=== PATIENT | female | born 1990 | race Caucasian/White ===

== ENCOUNTER 2020-03-12 20:05 | Emergency (ER) | payer BC, SELFPAY ==
--- NOTE | ~2020-03-12 | CT_ITS ---
EXAMINATION: CT abdomen pelvis w con DATE: 03/12/2020 21:45 INDICATION: Lower abdominal pain and nausea TECHNIQUE: Computed tomography (CT) of the abdomen and pelvis was performed with 100 mL Omnipaque-350 intravenous contrast. Automated exposure control and iterative reconstruction technique were employe d. The dose-length product was 1566.86 mGy-cm. COMPARISON: None FINDINGS: Large centrally calcified angioma at the anteroinferior lingula. Lung bases are otherwise clear. Hear t size is normal. No pericardial or pleural effusion. Liver, gallbladder, pancreas and bilateral adre nal glands are normal. Splenic calcification consistent with old granulomatous disease. 5 mm nonobstr ucting stone at the upper pole of the left kidney. 1.5 cm cyst at the interpolar region of the right kidney. Normal appendix. No abnormal bowel wall thickening or obstruction. Bladder, anteverted uterus and bilateral adnexa are unremarkable. No free intraperitoneal gas or fluid. No pathologically enlar ged abdominal or pelvic lymphadenopathy. Mild thoracic and lumbar spondylosis. IMPRESSION: 1. No acute intra-abdominal/pelvic process. 2. 5 mm nonobstructing left renal stone. Reviewed, dictated and finalized at location A.
[2020-03-12 20:15] VITALS: BP 186/94; PULSE 114; RESP 20; TEMP 36.6; O2SAT 96
[2020-03-12 20:40] LABS: Add Urine Microscopic? YES; Appearance Urine Clear (Clear); Bilirubin Urine Negative (Negative); Blood Urine Negative (Negative); Color Urine Yellow (Yellow); Glucose Urine UA Negative (Negative); Ketones Urine Trace (Negative); Leukocyte Esterase Ur Negative (Negative); Nitrate Urine Negative (Negative); Protein Urine Negative (Negative); Specific Grav Ur 1.025 (1.010-1.020); pH Urine 6.5 (5.0-8.0)
--- NOTE | 2020-03-12 20:40 | ED.ABDPAIN ---
HPI - Abdominal Pain General Chief Complaint: Abdominal Pain Stated Complaint: abd pain Source: patient Mode of arrival: ambulatory Limitations: no limitations History of Present Illness HPI narrative: this 29-year-old female comes to the ED with complaints of constant lower abdominal pain sharp, 5/10, for the last 7 days poor 2 or 3 times per she has additional sharp pain which she rates 7-8/10 which lasts less than 2 minutes. Traveling over a bump makes the pain worse. Nothing she does relieves the discomfort. She was nauseated earlier today and several times over the past week. The symptoms have not worsened, she came in because I could not handle it . , has been trying to get . Menses are irregular. She denies dyspareunia, dysuria, abnormal vaginal discharge, constipation, diarrhea, radiation of pain /back pain. She has never had this pain before. Has no hx of PID; current partner x 10 years. She had an elevated blood pressure at the infertility doctor's office, but not on follow up visits, last one 1 month ago, at [facility]. Pertinent past history: none Related Data Home Medications Medication Instructions Recorded Confirmed cholecalciferol (vitamin D3) 25 mcg PO DAILY 03/12/20 03/12/20 [Vitamin D3] letrozole 2.5 mg PO DAILY 03/12/20 03/12/20 Allergies Allergy/AdvReac Type Severity Reaction Status Date / Time bacitracin Allergy Unknown Verified 03/12/20 20:27 [From Neosporin ([id number])] neomycin Allergy Unknown Verified 03/12/20 20:27 [From Neosporin ([id number])] Penicillins Allergy Unknown Verified 03/12/20 20:27 polymyxin B Allergy Unknown Verified 03/12/20 20:27 [From Neosporin ([id number])] Review of Systems Constitutional: Constitutional: Denies chills and Denies fever(s) Respiratory: Respiratory: Denies cough and Denies dyspnea Gastrointestinal: Gastrointestinal: Denies nausea Genitourinary: Genitourinary: Denies hematuria and Reports nocturia (chronic. urinates ever couple of hours & 3 - 4 x/night) Musculoskeletal: Musculoskeletal: Reports no additional musculoskeletal complaints Integumentary/Breasts: Skin/Breast: Denies rash Neurologic: Comments: no headache PMFSH Past Medical History Medical History (Updated 03/12/20 @ 22:25 by Dakotah Puente MD) Infertility Obesity Exam Const: General: no acute distress Nutritional Appearance: obese (BMI = 60) Orientation/consciousness: patient oriented x3 Chest: Chest palpation & inspection: normal inspection of the chest Resp: Auscultation: clear to auscultation bilaterally GI: GI Palp: Yes Soft to palpation, Yes Tenderness to palpation present (GI) (suprapubic > LLQ and RLQ), No Guarding due to palpation present (GI), No Rigid due to palpation and No Rebound tenderness present Auscultation: absent bowel sounds : General: Yes no CVA tenderness External Female Exam: normal external appearance Speculum Exam - Vagina: normal appearance of the vagina, normal vaginal discharge and No vaginal bleeding Speculum Exam - Cervix: normal appearance of the cervix and Cervical os closed Bimanual exam- vagina & uterus: no cervical motion tenderness OB/external & speculum: no herpetic lesions Other: Unable to assess uterus or adnexae because of obesity. Back/Spine/Pelvis: Back: no CVA tenderness Skin: General skin exam: normal color Neuro: General: patient oriented x3 Course Course Emergency Course: Discussed results of lab tests. Etiology of pain is uncertain. Emphasized importance of follow up and advised to follow up for blood pressure checks. Reevaluation(s) Reevaluation #1: Pt's pain decreased to #1/10 after IM Toradol. Blood pressure dropped from 186/94 to 156/75 Date: 03/12/20 Time: 22:15 Vital Signs Vital signs: Vital Signs Temperature 36.6 C 03/12/20 20:15 Pulse Rate 114 H 03/12/20 20:15 Respiratory Rate 20 03/12/20 20:15 Blood Pressure 186/94 H
[2020-03-12 20:46] LABS: RBC Urine 0-2 /hpf (0-2); WBC Urine 0-3 /hpf (0-3)
[2020-03-12 20:47] LABS: Bacteria Urine 1+ /hpf; Calcium Oxalate Crystals Urine Present /hpf; Pregnancy On Board Control Positive; Specific Gravity Ur 1.025 (1.010-1.035); Squamous Epithelial Cell Urine Moderate /hpf (Few); Urine Pregnancy Test Negative
[2020-03-12 21:00] LABS: Basophils Absolute Auto 0.06 K/mm3 (0.00-0.10); Basophils Percent Auto 0.5 % (0.0-1.0); Eosinophils Absolute Auto 0.15 K/mm3 (0.02-0.50); Eosinophils Percent Auto 1.2 % (1.0-6.0); Hematocrit 47.7 % (35.0-49.0); Hemoglobin 14.1 g/dL (12.0-15.0); Immature Granulocyte Absolute 0.06 K/mm3 (0.00-0.00); Immature Granulocyte Percent A 0.5 % (0.0-0.0); Lymphocytes Absolute Auto 3.13 K/mm3 (1.10-4.50); Lymphocytes Percent Auto 24.5 % (18.0-42.0); Mean Corpuscular HGB Conc 29.6 g/dL (32.0-36.0); Mean Corpuscular Hemoglobin 25.3 pg (27.0-31.0); Mean Corpuscular Volume 85.6 fL (78.0-102.0); Mean Platelet Volume 11.2 fl (9.2-11.8); Monocytes Absolute Auto 1.14 K/mm3 (0.10-0.90); Monocytes Percent Auto 8.9 % (2.0-11.0); Neutrophils Absolute Auto 8.2 K/mm3 (1.7-7.2); Neutrophils Percent Auto 64.4 % (50.0-70.0); Platelet Count Result 234 K/mm3 (150-420); Red Blood Count 5.57 M/mm3 (4.20-5.40); Red Cell Distribution Width 14.9 % (11.6-14.4); White Blood Count 12.8 K/mm3 (4.8-10.8)
[2020-03-12 21:12] LABS: Anion Gap 11.3 mmol/L (7-16); Blood Urea Nitrogen 14 mg/dL (7-18); CRP 2.2 mg/dL (0.0-0.9); Carbon Dioxide 28 mmol/L (21-32); Chloride 105 mmol/L (98-108); Estimated CRCL calculation 129 ml/min; Estimated Glomerular Filt Rate > 60; Glucose 102 mg/dL (70-99); Osmolality Calculated 290 mOsm/kg (285-295); Potassium 4.3 mmol/L (3.5-5.1); Sodium 140 mmol/L (136-145)
[2020-03-12] MEDS: KETOROLAC (*BKC) 60 MG/2 ML VIAL IM (21:13)
[2020-03-12 21:41] VITALS: BP 156/75; PULSE 100; RESP 20; O2SAT 98
[2020-03-12 22:24] VITALS: BP 155/79; PULSE 101; RESP 18; TEMP 36.6; O2SAT 97
== END 2020-03-12 22:29 | disposition home or self-care (01) ==
PROVIDERS: Emergency Provider Family Medicine; PCP Physician Assistant
DX: R10.9 Unspecified abdominal pain (principal); R03.0 Elevated blood-pressure reading, without diagnosis of hypertension
CPT/HCPCS: 36415; 74177; 80048; 81001; 81025; 85025; 86140; 87210; 87491; 87591; 96372; 99283; 99284; J1885; Q9965

== ENCOUNTER 2022-05-03 15:50 | Outpatient (CLI) | payer BC, SELFPAY ==
--- NOTE | ~2022-05-03 | US_ITS ---
EXAMINATION: US venous doppler [facility] DATE: 05/03/2022 17:21 INDICATION: LEFT LEG PAIN;FAM HX OF BLOOD CLOTS . TECHNIQUE: Grayscale images without and with compression and Doppler images of the bilateral lower ex tremity veins were obtained. COMPARISON: None FINDINGS: The right common femoral vein, profunda (deep) femoral vein, femoral vein, popliteal vein, peroneal v ein, posterior tibial veins, gastrocnemius vein, lesser and greater saphenous vein are patent. The left common femoral vein, profunda femoral vein, femoral vein, popliteal vein, peroneal vein, pos terior tibial veins, gastrocnemius vein, lesser and greater saphenous vein are patent. IMPRESSION: 1. Patent bilateral lower extremity veins. No evidence of deep venous thrombosis. Reviewed, dictated and finalized at location K. IMPRESSION: 1. Patent bilateral lower extremity veins. No evidence of deep venous thrombos is.
== END 2022-05-03 15:51 | disposition home or self-care (01) ==
PROVIDERS: PCP Physician Assistant
DX: M79.662 Pain in left lower leg (principal)
CPT/HCPCS: 93970